=== PATIENT | female | born 1980 | race Caucasian/White ===

== ENCOUNTER 2019-12-24 07:02 | Inpatient (IN) | payer OTHER, MEDICAID ==
[~2019-12-24] VITALS: Ht 147.3 cm; Wt 39.0 kg
[2019-12-24] MEDS ORDERED: NACL 0.9% 1,000 ML IV ONE ×2 (07:22→09:45)
[2019-12-24] MEDS ORDERED: DIVA250T34 PO (07:24)
[2019-12-24] MEDS ORDERED: MEGE400O4 PO (07:24)
[2019-12-24] MEDS ORDERED: [UNRECOGNIZED DRUG - CODE] PO (07:24)
[2019-12-24] MEDS ORDERED: MULT-1243 PO (07:24)
[2019-12-24] MEDS ORDERED: [UNRECOGNIZED DRUG - CODE] PO (07:24)
[2019-12-24 07:25] VITALS: BP_SYST 119
--- NOTE | 2019-12-24 07:33 | NUR ---
PATIENT PRESENTS TO THE ER WITH HX OF FEVER WITH COUGH AND N/V FOR TWO DAYS; NO TRAUMA, NO OTHER REMARKABLE S/S; TO ER #8 AT 0710 AND ERMD EVALUATION 0720
[2019-12-24 08:12] LABS: HEMATOCRIT 40.4 % (36-48); HEMOGLOBIN 13.6 g/dL (12.0-16.0); LYMPHOCYTES # (AUTO) 0.3 K/uL (1.0-5.5); MEAN CORPUSCULAR HEMOGLOBIN 34 pg (27-31); MEAN CORPUSCULAR HGB CONC 34 % (32-36); MEAN CORPUSCULAR VOLUME 100 fL (79.0-98.0); MONOCYTES # (AUTO) 0.9 K/uL (0.0-1.0); RED BLOOD CELL COUNT(AUTO) 4.04 MIL/uL (4.2-6.2)
[2019-12-24 08:25] LABS: BASOPHILS # (AUTO) 0.1 K/uL (0.0-0.2); BASOPHILS % (AUTO) 0.5 % (0.0-2.0); CALCIUM 9.1 mg/dL (8.4-11.0); CREATININE 0.59 mg/dL (0.55-1.30); LYMPHOCYTES % (AUTO) 3.3 % (20.5-51.5); MONOCYTES % (AUTO) 8.7 % (1.7-9.3); NEUTROPHILS # (AUTO) 8.9 K/uL (1.8-7.7); NEUTROPHILS % (AUTO) 87.5 % (40.0-70.0); PLATELET COUNT (AUTO) 102 K/uL (130-430); POTASSIUM 3.5 mmol/L (3.5-5.1); RED CELL DISTRIBUTION WIDTH 13.3 % (9.0-15.0); WHITE BLOOD COUNT (AUTO) 10.1 K/uL (4.8-10.8)
--- NOTE | 2019-12-24 08:28 | NUR ---
REASSESSMENT; STRAIGHT CATH PER ERMD FOR UX; OTHERWISE UNCHANGED; DISPOSITION PENDING
[2019-12-24 08:29] LABS: ALBUMIN 3.2 g/dL (3.4-4.8); TOTAL BILIRUBIN 0.1 mg/dL (0.0-1.0)
[2019-12-24] MEDS ORDERED: cefTRIAXone 1 GM IVPB PREMIX 50 ML IV ONE (08:30)
[2019-12-24 08:40] LABS: BILIRUBIN,URINE NEGATIVE (NEGATIVE); BLOOD, URINE 3+ (NEGATIVE); CLARITY/URINE CLEAR (CLEAR); COLOR,URINE YELLOW (YELLOW); GLUCOSE,URINE NEGATIVE (NEGATIVE); KETONES,URINE NEGATIVE (NEGATIVE); LEUKOCYTE ESTERASE ,URINE NEGATIVE (NEGATIVE); NITRITE, URINE NEGATIVE (NEGATIVE); PROTEIN URINE 1+ (NEGATIVE); UROBILINOGEN,URINE 0.2 (0.2-1.0)
[2019-12-24 08:52] LABS: BACTERIA,URINE FEW /HPF (None Seen); RBC,URINE 20-50 /HPF (0-3); WBC,URINE 0-3 /HPF (0-3)
[2019-12-24 08:53] LABS: HYALINE CASTS, URINE 0-10 /LPF (None Seen)
--- NOTE | 2019-12-24 09:26 | NUR ---
REASSESSMENT; PATIENT IS AWAKE AND IMPROVED; CONGESTED COUGH NOTED AND PATIENT IS ABLE TO CLEAR OWN AIRWAY WELL; ADMISSION TO DR POWELL'S SERVICE PENDING
[2019-12-24] MEDS ORDERED: NACL 0.9% 500 ML IV ONE (09:30)
[2019-12-24] MEDS ORDERED: PROMETHAZINE-DM 6.25 MG-15 MG/5 ML UDC PO PRN (09:45)
[2019-12-24] MEDS ORDERED: IPRATROPIUM/ALBUTEROL SULFATE 3 ML AMPUL.NEB (DUONEB) INH ONE (09:45)
--- NOTE | 2019-12-24 10:28 | NUR ---
REASSESSMENT BY ERMD; PATIENT PREPARED FOR ADMISSION TO TELE; PATENT IV; BREATH SOUNDS CLEAR AFTER COUGH; PATIENT TRANSPORTED ACLS TO TELE AND REPORT AT BEDSIDE; NO BELONGINGS
--- NOTE | 2019-12-24 10:41 | NUR ---
ADMISSION NOTE Received patient from ER via gurney, received report from RN. Patient admitted with diagnosis of pneumonia. Patient oriented to hospital routine, call light, toileting and safety-patient verbalized understanding.
--- NOTE | 2019-12-24 10:48 | NUR ---
CONSULTATION PAGED REASON FOR CONSULTATION:PNEUMONIA WAS CONSULT CALLED?Y PERSON WHO WAS NOTIFIED:FIOR CONSULTING PHYSICIAN:BONIFACIO SEGURA (SEGUN ODONNELL TRAIN RESERVATION CLERK) OPERATIONS REPRESENTATIVE SPECIALTY:PULMONARY OPERATIONS REPRESENTATIVE PHONE NUMBER:[phone] ORDERING PHYSICIAN:GIOVANNA FRANCIS
--- NOTE | 2019-12-24 11:00 | NUR ---
RN ROUND RECEIVED REPORT BY ADN NURSE, TABITHA. PT AWAKE, MODERATE COUGHING EPISODE, WITH NO SPUTUM. TEMP 100.7, BP 135/78, HR 144. O2 SAT 90% ON ROOM AIR, RR 42. REPOSITIONED PT, PT IN HIGH FOWLERS. PLACED ICE PACKS UNDERARMS AND ABDOMEN. WILL CONTINUE TO MONITOR.
[2019-12-24 11:05] VITALS: BP_SYST 135
--- NOTE | 2019-12-24 13:05 | NUR ---
RN ROUNDS PT AWAKE, NO COUGHING. PT SATURATION AT 88%, PT IN HIGH FOWLERS. PLACED PT ON 2L NC, SATURATION AT 95%. PT TOLERATING WELL. AXILLARY TEMP 100.2. WILL PAGE . WILL CONTINUE TO MONITOR.
--- NOTE | 2019-12-24 13:25 | NUR ---
DR. POWELL SPOKE WITH MD VIA PHONE, INFORMED MD PT TEMP 100.2 (AXILLARY), HR 133-144, RR 42, O2 SAT 95% ON 2L NC, PT HAS NO DVT PROPHYLAXIS OR IVF, PT IS NOT EATING OR DRINKING, ATTEMPTED TO FEED PT BUT PT POCKETED FOOD IN CHEEK, PT RECEIVED 1.5L NS, LEVAQUIN AND ROCEPHIN IN ER. BLOOD CULTURES ARE PENDING, LACTIC ACID 3.6, 3.4, INFLUENZA NEGATIVE. NEW ORDERS RECEIVED, VERIFIED WITH READ BACK.
[2019-12-24] MEDS ORDERED: ACETAMINOPHEN 500 MG TABLET PO PRN (13:30)
[2019-12-24] MEDS: NACL 0.9% 1,000 ML IV SCH ×2 (13:50→21:59)
[2019-12-24] MEDS: ACETAMINOPHEN 650 MG SUPP.RECT RC PRN ×2 (13:52→23:40)
--- NOTE | 2019-12-24 14:00 | NUR ---
DR. ANDRE RAO AT BEDSIDE EXAMINING PT. INFORMED MD THAT TEMP IS STILL ELEVATED 100.3, TYLENOL REC WAS GIVEN AND IVF AND ANTIBIOTICS WERE STARTED. TO CONTINUE POC.
[2019-12-24] MEDS: PIPERACILLIN/TAZO 3.375/DEX-IS 50 ML IV SCH ×2 (14:21→21:08)
[2019-12-24] MEDS ORDERED: MULTIVITAMINS TAB 1 TABLET PO ONE (14:30)
[2019-12-24] MEDS: LamoTRIgine 25 MG TABLET PO SCH (14:30)
[2019-12-24] MEDS ORDERED: MEGESTROL ACETATE 400 MG/10 ML UDC PO ONE (14:30)
[2019-12-24] MEDS: LYSINE HCL 500 MG PO SCH ×2 (14:30→21:00)
[2019-12-24] MEDS ORDERED: DIVALPROEX SODIUM 250 MG TABLET(DEPAKOTE) PO ONE (14:30)
--- NOTE | 2019-12-24 15:00 | NUR ---
RN ROUNDS/DR. POPPY RAO AT BEDSIDE EXAMINING PT. INFORMED MD THAT PT HAS BEEN COUGHING MODERATELY, DESATURATING AT 88% AND PLACED PT ON 2L NC SATURATING AT 95%, PT FEVER HAS NOT BROKEN STILL REMAINS AT 100.3. PLACED FRESH NEW ICE PACKS ON PT. MD TO PLACE IN NEW ORDERS.
--- NOTE | 2019-12-24 15:21 | NUR ---
DR. GRAFF SPOKE WITH MD VIA PHONE INFORMED MD BLOOD CULTURE PENDING, LACTIC ACID 3.6, 3.4, IVF NORMAL SALINE RUNNING AT 100CC. TO INCREASE IVF RATE TO 125CC/HR. VERIFIED WITH READ BACK.
--- NOTE | 2019-12-24 15:41 | NUR ---
CONSULTATION PAGED/CALLED Reason for Consultation: [] SEPSIS Person Who was Notified: [] MERLIN Consulting Physician: [] DR CARLENE GRAFF Branch Manager Specialty: [] ID Ordering Physician: [] DR POWELL,SH
[2019-12-24 16:00] VITALS: BP_SYST 123
[2019-12-24] MEDS ORDERED: ALBUTEROL SULFATE 0.083% 2.5 MG/3 ML VIAL.NEB INH PRN (16:15)
[2019-12-24] MEDS ORDERED: IPRATROPIUM BROM 0.5 MG/2.5 ML VIAL.NEB (ATROVENT) INH PRN (16:15)
--- NOTE | 2019-12-24 16:52 | NUR ---
INCONTINENT PT INCONTINENT OF URINE. CHANGED PT AND LINEN. GAVE PT PARTIAL BED BATH. PT TOLERATED WELL. REPOSITIONED PT. PLACED NEW ICE PACKS. TEMP 100.1. WILL CONTINUE TO MONITOR.
--- NOTE | 2019-12-24 17:39 | NUR ---
RN ROUNDS PT AWAKE, ICE PACKS IN PLACE, TEMP 99.9. WILL CONTINUE TO MONITOR.
--- NOTE | 2019-12-24 18:41 | NUR ---
CLOSING NOTE PT AWAKE AND TRACKS WITH EYES, PT REMAINS NON VERBAL. TEMP 99.3. FRESH ICE PACKS REPLACED. IVF INFUSING WELL. SCDS AT BEDSIDE. WILL ENDORSE TO TORPEDO SHOOTER TO PLACE THEM ON PT ONCE TEMP LOWERS. PT REMAINS WARM. IVF INFUSING WELL. PT IS NPO UNTIL SWALLOW EVALUATION IS DONE. CALL LIGHT WITHIN REACH, BED IN LOW AND LOCKED POSITION WITH BED ALARM ON. ALL NEEDS MET THROUGHOUT SHIFT. WILL CONTINUE TO MONITOR UNTIL PT CARE IS ENDORSED TO TORPEDO SHOOTER RN.
--- NOTE | 2019-12-24 20:00 | NUR ---
recieved report @ start of shift, pt. non verbal, respirations even and unlabored, O2 @ 2l per NC. HOB elevated 30 degrees,patient tracks with eyes,NPO until swallow eval done,temp 98.3 @ this time,skin intact,no seizure activity noted, sr's padded,incont. of urine, kept clean and dry,aspiration precautions maintained,NS infusing in left wrist@ 125 ml./hr, bed in low position, will ontinue to monitor, Sinus Tach on tele monitor.
[2019-12-24 20:13] VITALS: BP_SYST 152
[2019-12-24] MEDS: IPRATROPIUM BROM 0.5 MG/2.5 ML VIAL.NEB (ATROVENT) INH SCH (20:19)
[2019-12-24] MEDS: ALBUTEROL SULFATE 0.083% 2.5 MG/3 ML VIAL.NEB INH SCH (20:19)
[2019-12-24] MEDS: DIVALPROEX SODIUM 250 MG TABLET(DEPAKOTE) PO SCH (21:00)
[2019-12-24] MEDS: MEGESTROL ACETATE 400 MG/10 ML UDC PO SCH (21:00)
[2019-12-25] VITALS (9 sets, daily range): BP systolic 104–150
--- NOTE | 2019-12-25 | NUR ---
resting quietly in bed with eyes open, several attempts made to restart IV unsuccessful, charge nurse restarted IV in left hand # 22G,tylenol Rectal supp. given earlier for elevated temp of 100.5 along with ice packs to abdomen, back of neck and axilla, temp down to 99.5, will continue to monitor.
[2019-12-25] MEDS: IPRATROPIUM BROM 0.5 MG/2.5 ML VIAL.NEB (ATROVENT) INH SCH ×4 (01:30→17:04)
[2019-12-25] MEDS: ALBUTEROL SULFATE 0.083% 2.5 MG/3 ML VIAL.NEB INH SCH ×4 (01:30→17:03)
[2019-12-25] MEDS ORDERED: LevALBUTEROL HCL 1.25 MG/0.5 ML *CONC.* VIAL.NEB (XOPENEX CONC.) INH ONE (01:36)
--- NOTE | 2019-12-25 04:00 | NUR ---
afebrile, temp 98.5, remains NPO, , swallowing evaluation to be done this am, aspiration ans seizure precautions maintained, NS continues to infuse in left hand @ 125 ml/hr, kept clean and dry i cont. of bladder, remains non verbal, no seizure activity noted, will continue to monitor for any s/s of distress/discomfort.
--- NOTE | 2019-12-25 05:28 | NUR ---
CALLED/LEFT VOICE MESSAGE TO ST MISA[facility] HERNANDEZ.
[2019-12-25] MEDS: NACL 0.9% 1,000 ML IV SCH (05:37)
[2019-12-25] MEDS: PIPERACILLIN/TAZO 3.375/DEX-IS 50 ML IV SCH ×3 (05:37→22:25)
[2019-12-25 07:30] LABS: BASOPHILS % (AUTO) 0.1 % (0.0-2.0); HEMATOCRIT 30.6 % (36-48); HEMOGLOBIN 10.6 g/dL (12.0-16.0); LYMPHOCYTES # (AUTO) 0.8 K/uL (1.0-5.5); LYMPHOCYTES % (AUTO) 8.2 % (20.5-51.5); MEAN CORPUSCULAR HEMOGLOBIN 35 pg (27-31); MEAN CORPUSCULAR HGB CONC 35 % (32-36); MEAN CORPUSCULAR VOLUME 100 fL (79.0-98.0); MONOCYTES # (AUTO) 0.6 K/uL (0.0-1.0); NEUTROPHILS # (AUTO) 8.8 K/uL (1.8-7.7); NEUTROPHILS % (AUTO) 85.7 % (40.0-70.0); RED BLOOD CELL COUNT(AUTO) 3.07 MIL/uL (4.2-6.2); RED CELL DISTRIBUTION WIDTH 13.6 % (9.0-15.0); WHITE BLOOD COUNT (AUTO) 10.3 K/uL (4.8-10.8)
[2019-12-25 07:41] LABS: ALBUMIN 2.2 g/dL (3.4-4.8); CALCIUM 7.5 mg/dL (8.4-11.0); CREATININE 0.42 mg/dL (0.55-1.30); POTASSIUM 3.8 mmol/L (3.5-5.1); THYROID STIMULATING HORMONE 1.5 uIu/mL (0.36-3.74)
[2019-12-25 07:44] LABS: PLATELET COUNT (AUTO) 80 K/uL (130-430)
[2019-12-25 07:53] LABS: TOTAL BILIRUBIN 0.2 mg/dL (0.0-1.0)
--- NOTE | 2019-12-25 08:09 | NUR ---
LATE ENTRY RECEIVED PATIENT IN BED EYES OPEN RESP UNLABORED APHASIC. PER RT SUCTIONED BLOOD TINGED MUCOS PLUGG PATIENT TOLERATED/ SPO2 97% NO S&S OF DISTRESS. VSS. WILL CONTINUE TO MONITOR FOR BLEEDING. SPEECH EVAL TO DAY SUGGEST PUREE NECTOR THICKED LIQUID. APPROX 45 MIN AFTER SPEECH EVAL. NOTICED SMALL AMOUNT OF BLOOD TINGED ORAL SECREATIONS. DR MALONEY NOTIFIED AND DR HWANG OF BLEEDING. ORDERED TO KEEP NPO UNTIL TOMORROW. AND ORDERED 20MG SOLUMEDROL IV Q8. WILL CONTINUE TO MONITOR
[2019-12-25] MEDS: DIVALPROEX SODIUM 250 MG TABLET(DEPAKOTE) PO SCH ×2 (09:00→20:24)
[2019-12-25] MEDS: LYSINE HCL 500 MG PO SCH ×2 (09:00→20:24)
[2019-12-25] MEDS ORDERED: LEVOFLOXACIN 500 MG/D5W 100 ML IV SCH (09:00)
[2019-12-25] MEDS: MULTIVITAMINS TAB 1 TABLET PO SCH (09:00)
[2019-12-25] MEDS: LamoTRIgine 25 MG TABLET PO SCH (09:31)
[2019-12-25] MEDS: MEGESTROL ACETATE 400 MG/10 ML UDC PO SCH ×2 (09:32→20:24)
--- NOTE | 2019-12-25 09:37 | NUR ---
Nutrition Update Kong Scale 13 noted. Pt admitted for pneumonia. Diet: NPO BMI: 18 kg/m2 RD to follow per nutrition care standards.
--- NOTE | 2019-12-25 16:12 | NUR ---
S.T. SWALLOW EVAL SWALLOW EVAL COMPLETED. PT PRESENTS W/ MOD OROPHARYNGEAL DYSPHAGIA W/ ERRATIC BOLUS THEATRICAL VARIETY AGENT AND TRANSFER, GENERALLY TIMELY SWALLOW INITIATION FOR PUREE AND THICKENED LIQUIDS, ERRATIC SWALLOW INITIATION AND SUSPECTED PREMATURE SPILLAGE FOR THIN LIQUIDS W/ INCREASED LABOR OF BREATHING NOTED (ON THIN LIQUIDS). ASPIRATION RISK PRESENT FOR THIN LIQUIDS. REC: PUREE DIET. THICKENED LIQUIDS (NECTAR CONSISTENCY). PT NOT A CANDIDATE FOR VFSS D/T POSITIONING DIFFICULTY. NURSE BURR NOTIFIED.
[2019-12-25] MEDS: 0.45% NACL 1,000 ML IV SCH (17:23)
--- NOTE | 2019-12-25 19:30 | NUR ---
ICU TRANSFER Rapid response in TELE, patient brought to ICU bed 1. Pt is awake/alert but unable to make needs known D/T MR. 02 via Venti mask at 50%. ST on monitor. Skin is cold and sweaty. Rectal temp 103.2F, PRN fever medication to be given. IVF infusing. Report given by television cameraman. Safety precautions in place, call light within reach. Will continue to monitor.
--- NOTE | 2019-12-25 20:00 | NUR ---
DR. MCWILLIAMS Spoke to Dr. Mcwilliams, [facility] results given. No new orders.
[2019-12-25] MEDS: ACETAMINOPHEN 650 MG SUPP.RECT RC PRN (20:15)
--- NOTE | 2019-12-25 20:16 | NUR ---
LATE ENTRY @ 1845 FOUND PATIENT WITH BLOOD COMMING FROM NOSE AND ORALLY. COLOR PALE, PATIENT MORE LETHARGIC SPO2 @ 83 EYES BEGINNING TO ROLL BACK. RAPID RESPONSE CALLED. RT AND MD AT AND TEAM AT BEDSIDE. PATIENT WITH POSITIVE PULSES BILATERALLY SUCTIONED MODERATE AMOUNT OF ORAL SECREATIONS.. DR HWANG NOTIFIED OF PATIENT CONDITION ORDERED PATIENT TO BE TRANSFERED ICU, ABG CXR 50%VENTI MASK. AT TIME OF TRANSFER PATIENT ALERT BP 150/98 HR 115 SPO2 90%
[2019-12-25 20:49] LABS: HEMOGLOBIN 11.3 g/dL (12.0-16.0); MEAN CORPUSCULAR HEMOGLOBIN 34 pg (27-31)
[2019-12-25 20:55] LABS: HEMATOCRIT 32.9 % (36-48); MEAN CORPUSCULAR HGB CONC 34 % (32-36); MEAN CORPUSCULAR VOLUME 99 fL (79.0-98.0); RED BLOOD CELL COUNT(AUTO) 3.31 MIL/uL (4.2-6.2); RED CELL DISTRIBUTION WIDTH 13.4 % (9.0-15.0); WHITE BLOOD COUNT (AUTO) 7.1 K/uL (4.8-10.8)
[2019-12-25 21:00] LABS: CALCIUM 7.9 mg/dL (8.4-11.0); CREATININE 0.46 mg/dL (0.55-1.30); POTASSIUM 3.2 mmol/L (3.5-5.1)
[2019-12-25 21:02] LABS: INR 1.1 (0.8-1.2); PROTHROMBIN TIME 11.1 SECS (9.5-12.5)
[2019-12-25 21:03] LABS: ALBUMIN 2.4 g/dL (3.4-4.8); TOTAL BILIRUBIN 0.2 mg/dL (0.0-1.0)
[2019-12-25 21:07] LABS: PLATELET COUNT (AUTO) 111 K/uL (130-430)
[2019-12-25 21:09] LABS: BAND % (MANUAL) 12 % (0-6); BASOPHILS % (MANUAL) 0 % (0-2); EOSINOPHILS % (MANUAL) 0 % (0-7); LYMPHOCYTES % (MANUAL) 3 % (20-46); MONOCYTES % (MANUAL) 10 % (0-11)
--- NOTE | 2019-12-25 22:05 | NUR ---
Dr. POWELL Spoke to Dr. Powell, LAB results given. Orders for K+ and Montoya catheter given. Will carry out orders.
[2019-12-25] MEDS: methylPREDNISolone SOD SUCC 40 MG/ML VIAL IVP SCH (22:24)
[2019-12-25] MEDS: KCL 20 mEq in 100 mL (PREMIX) 100 ML IV SCH (22:32)
--- NOTE | 2019-12-25 23:40 | NUR ---
LUCIANO CATH: # 16 FR Luciano catheter with 10 cc bulb inserted with use of sterile technique. Immediate return of 30 cc yellow urine noted. Bedside drainage bag placed below level of bladder. Pt tolerated procedure well.
[2019-12-26] VITALS (22 sets, daily range): BP systolic 91–143
[2019-12-26] MEDS: KCL 20 mEq in 100 mL (PREMIX) 100 ML IV SCH (00:05)
[2019-12-26] MEDS: IPRATROPIUM BROM 0.5 MG/2.5 ML VIAL.NEB (ATROVENT) INH SCH ×4 (02:02→19:52)
[2019-12-26] MEDS: ALBUTEROL SULFATE 0.083% 2.5 MG/3 ML VIAL.NEB INH SCH ×4 (02:02→19:52)
[2019-12-26] MEDS: methylPREDNISolone SOD SUCC 40 MG/ML VIAL IVP SCH ×3 (05:37→22:22)
[2019-12-26] MEDS: PIPERACILLIN/TAZO 3.375/DEX-IS 50 ML IV SCH ×3 (05:38→22:22)
[2019-12-26 06:23] LABS: BASOPHILS % (AUTO) 0.1 % (0.0-2.0); EOSINOPHILS % (AUTO) 0.1 % (0.0-4.0); HEMATOCRIT 34.1 % (36-48); HEMOGLOBIN 11.6 g/dL (12.0-16.0); LYMPHOCYTES # (AUTO) 0.4 K/uL (1.0-5.5); LYMPHOCYTES % (AUTO) 4.4 % (20.5-51.5); MEAN CORPUSCULAR HEMOGLOBIN 34 pg (27-31); MEAN CORPUSCULAR HGB CONC 34 % (32-36); MEAN CORPUSCULAR VOLUME 101 fL (79.0-98.0); MONOCYTES # (AUTO) 0.7 K/uL (0.0-1.0); MONOCYTES % (AUTO) 7.9 % (1.7-9.3); NEUTROPHILS # (AUTO) 8.1 K/uL (1.8-7.7); NEUTROPHILS % (AUTO) 87.5 % (40.0-70.0); PLATELET COUNT (AUTO) 78 K/uL (130-430); RED BLOOD CELL COUNT(AUTO) 3.37 MIL/uL (4.2-6.2); RED CELL DISTRIBUTION WIDTH 13.8 % (9.0-15.0); WHITE BLOOD COUNT (AUTO) 9.3 K/uL (4.8-10.8)
[2019-12-26 06:30] LABS: CALCIUM 8.3 mg/dL (8.4-11.0); CREATININE 0.29 mg/dL (0.55-1.30)
--- NOTE | 2019-12-26 07:25 | NUR ---
ENDORSEMENT Pt care endorsed to dayshift RN using nursing SBAR.
[2019-12-26] MEDS ORDERED: LORazepam 2 MG/ML VIAL IV PRN (08:15)
[2019-12-26] MEDS ORDERED: methylPREDNISolone SOD SUCC 40 MG/ML VIAL IVP SCH (09:00)
[2019-12-26] MEDS: LYSINE HCL 500 MG PO SCH ×2 (09:00→20:49)
[2019-12-26] MEDS: DIVALPROEX SODIUM 250 MG TABLET(DEPAKOTE) PO SCH ×2 (09:49→20:54)
[2019-12-26] MEDS: MEGESTROL ACETATE 400 MG/10 ML UDC PO SCH ×2 (09:51→20:53)
[2019-12-26] MEDS: LamoTRIgine 25 MG TABLET PO SCH (09:55)
[2019-12-26] MEDS: MULTIVITAMINS TAB 1 TABLET PO SCH (09:55)
[2019-12-26] MEDS: 0.45% NACL 1,000 ML IV SCH (15:12)
--- NOTE | 2019-12-26 19:00 | NUR ---
THE PT DID EAT SOME BREAKFAST AND DINNER BUT REFUSED LUNCH. SHE HAD TWO BOWEL MOVEMENTS FOR ME AND IS AFEBRILE. I DID GET A HOLD OF HER MOTHER WHO LIVES IN [place] FOR CONSENT OF MIDLINE INSERTION. SHE PT IS STABLE AT THIS AND ANTIBIOTIC THERAPY IS ONGOING.
--- NOTE | 2019-12-26 19:30 | NUR ---
initial note Received patient after report from day shift nurse. Patient is awake and resting comfortably. no signs of respiratory distress noted as patient is on O2 4L NC. repositioned for comfort. will continue to monitor
[2019-12-27] VITALS (12 sets, daily range): BP systolic 93–123
[2019-12-27] MEDS: ALBUTEROL SULFATE 0.083% 2.5 MG/3 ML VIAL.NEB INH SCH ×4 (01:01→19:28)
[2019-12-27] MEDS: IPRATROPIUM BROM 0.5 MG/2.5 ML VIAL.NEB (ATROVENT) INH SCH ×4 (01:01→19:28)
--- NOTE | 2019-12-27 01:05 | NUR ---
O2 reduced to 3L NC and patient tolerating well.
--- NOTE | 2019-12-27 04:30 | NUR ---
complete bed bath provided. stool present and perineal cere given. patient tolerated well. repositioned for comfort.
[2019-12-27] MEDS: PIPERACILLIN/TAZO 3.375/DEX-IS 50 ML IV SCH ×3 (06:22→21:20)
[2019-12-27] MEDS: methylPREDNISolone SOD SUCC 40 MG/ML VIAL IVP SCH ×3 (06:22→21:23)
[2019-12-27 07:10] LABS: BASOPHILS % (AUTO) 0.2 % (0.0-2.0); HEMATOCRIT 31.1 % (36-48); HEMOGLOBIN 10.6 g/dL (12.0-16.0); LYMPHOCYTES # (AUTO) 0.5 K/uL (1.0-5.5); LYMPHOCYTES % (AUTO) 7.6 % (20.5-51.5); MEAN CORPUSCULAR HEMOGLOBIN 34 pg (27-31); MEAN CORPUSCULAR HGB CONC 34 % (32-36); MEAN CORPUSCULAR VOLUME 99 fL (79.0-98.0); MONOCYTES # (AUTO) 0.3 K/uL (0.0-1.0); MONOCYTES % (AUTO) 4.7 % (1.7-9.3); NEUTROPHILS # (AUTO) 6.3 K/uL (1.8-7.7); NEUTROPHILS % (AUTO) 87.5 % (40.0-70.0); PLATELET COUNT (AUTO) 101 K/uL (130-430); RED BLOOD CELL COUNT(AUTO) 3.14 MIL/uL (4.2-6.2); RED CELL DISTRIBUTION WIDTH 13.6 % (9.0-15.0); WHITE BLOOD COUNT (AUTO) 7.2 K/uL (4.8-10.8)
[2019-12-27 07:24] LABS: ALBUMIN 2.1 g/dL (3.4-4.8); CALCIUM 8.3 mg/dL (8.4-11.0); CREATININE 0.37 mg/dL (0.55-1.30); POTASSIUM 3.6 mmol/L (3.5-5.1); TOTAL BILIRUBIN 0.3 mg/dL (0.0-1.0)
--- NOTE | 2019-12-27 08:44 | NUR ---
Nutrition F/U RD reviewed pt's current EMR including diet Hx, physician notes, nursing notes, pertinent labs/meds/procedures, care trends and care activity. Current Diet Order: Pureed diet x 1 day Subjective information: Pt seen in bed, awake but non-verbal, breathing treatment ongoing at time of RD visit earlier. Per RN report, pt w/ poor PO intake. Reports from yesterday's RN: PO intake: 25% of breakfast, refused lunch and had 7 bites of food at dinner, no intake of Ensure as pt w/ some difficulty swallowing. Per MD notes 12/26/2019: pt had seizure like activity, bleeding from nose and desaturated and was transferred to ICU 12/26. RD noted pt is currently receiving Megace to stimulate appetite and elevated BG possible d/t solu-medrol medication interaction. Last BM 12/27 x2. If PO intake does not improve by next RD visit, pt may benefit from an alternate route of nutrition support. Current PO intake: Negligible 12% average of 3 meals 12/26/2019 per RN report. Estimated Energy Expenditure (kcals/day) 6342-9898 kcal/day (30-35 kcal/kg CBW for sepsis) Estimated Protein Required (g/day) 59-78 gm/day (1.5-2 gm/kg CBW for sepsis) Estimated Fluid Required (l/day) 1.2-1.4 mL/day (1 mL/kcal for maintenance) Problem/Etiology/Signs/Symptoms Increase nutritional needs related to catabolic condition as evidenced by estimated caloric needs for sepsis. *ongoing Altered nutrition related labs r/t medication interaction AEB elevated BG and solu-medrol. *new Expected Outcomes/Goals - Monitor appetite and PO intake w/ goal of pt meeting great than 50% of estimated caloric intake, labs trading WNL, skin integrity, and wt maintenance. Dietitian Recommendations * Continue Pureed diet w/ thickened liquids per RAILROAD OPERATING ENGINEER rec. * Continue Megace and MVI. * Encourage pt to increase PO intake. Follow Up High Risk: F/U in 2-3days
--- NOTE | 2019-12-27 08:53 | NUR ---
Dietitian Recommendations * Continue Pureed diet w/ thickened liquids per CASEY SAW OPERATOR rec. * Continue Megace and MVI. * Encourage pt to increase PO intake. Please see Nutrition F/U note for details. JHONATHAN, RD
[2019-12-27] MEDS: LYSINE HCL 500 MG PO SCH ×2 (09:00→21:00)
[2019-12-27] MEDS: DIVALPROEX SODIUM 250 MG TABLET(DEPAKOTE) PO SCH ×2 (09:12→21:19)
[2019-12-27] MEDS: MEGESTROL ACETATE 400 MG/10 ML UDC PO SCH ×2 (09:13→21:19)
[2019-12-27] MEDS: MULTIVITAMINS TAB 1 TABLET PO SCH (09:13)
[2019-12-27] MEDS: LamoTRIgine 25 MG TABLET PO SCH (09:13)
--- NOTE | 2019-12-27 11:00 | NUR ---
THE PT WAS DOWNGRADED TO FLOOR STATUS. I CALLED REPORT TO TIARRA GÓMEZ. THE PT DID EAT SOME BREAKFAST AND WAS ABLE TO TAKE HER SEIZURE MEDICATION FOR ME. SHE DID HAVE A BOWEL MOVEMENT SHORTLY AFTER AND WAS CLEANED. SO2 STABLE WITH 3L NC. VS STABLE WELL.
--- NOTE | 2019-12-27 12:00 | NUR ---
received from icu and vss.tele sr.appears in no sign of distress or discomfort.nonverbal and only screams or yells and reacts to painful stimuli.repositioned in bed .castillo patent and clear judy urine draining.pt is a feeder and intake poor for lunch.02 at 3lnc and neb tx done by rt.mod amt of secretions and suctioned afterward.skin clear and intact.continue to monitor.
[2019-12-27] MEDS: 0.45% NACL 1,000 ML IV SCH (14:20)
--- NOTE | 2019-12-27 18:46 | NUR ---
pt in no signs of discomfort.turned and repositiond q2h occ coughing spells and suctioned prn for small amt clear sputum.takes only 20% of dinner intake.tele with clear judy urine.continue to monitor
--- NOTE | 2019-12-27 19:18 | NUR ---
REPORT TO MACHINE INSTALLER GIVEN
--- NOTE | 2019-12-27 19:55 | NUR ---
Opening notes Pt alert, awake, eyes open, non verbal. No s/s distress noted. O23L via NC satting at 93-98%. IVF infusing at ordered rate RU arm midline double port clear and patent. Montoya catheter draining to gravity secured. Seizure precaution in place. Bed low, locked, siderails up. To monitor.
--- NOTE | 2019-12-27 21:30 | NUR ---
Med pass Pt alert, awake, no s/s distress noted. Meds passed as scheduled. HOB maintained elevated. Pt oral suctioned, noted small, clear secretions. Pt tolerated well. Will monitor.
--- NOTE | 2019-12-27 23:30 | NUR ---
Rounds Pt asleep, easily arousable. Pt takes off nasal cannula, desats 86%. Oxygen placed back on pt sats 95%. To monitor.
--- NOTE | 2019-12-28 01:43 | NUR ---
Rounds Pt asleep, respirations even and unlabored. Safety maintained. Will continue to monitor.
[2019-12-28] MEDS: ALBUTEROL SULFATE 0.083% 2.5 MG/3 ML VIAL.NEB INH SCH ×4 (01:59→20:16)
[2019-12-28] MEDS: IPRATROPIUM BROM 0.5 MG/2.5 ML VIAL.NEB (ATROVENT) INH SCH ×4 (01:59→20:16)
[2019-12-28 02:11] VITALS: BP_SYST 137
--- NOTE | 2019-12-28 03:30 | NUR ---
Rounds Pt asleep, no s/s distress noted. Safety measures maintained. Seizure precaution in place. To monitor.
[2019-12-28] MEDS: PIPERACILLIN/TAZO 3.375/DEX-IS 50 ML IV SCH ×3 (05:43→21:00)
[2019-12-28] MEDS: 0.45% NACL 1,000 ML IV SCH ×2 (05:43→21:00)
[2019-12-28] MEDS: methylPREDNISolone SOD SUCC 40 MG/ML VIAL IVP SCH ×2 (05:43→20:45)
--- NOTE | 2019-12-28 05:50 | NUR ---
Closing notes Pt awake, no s/s distress noted. Pt takes off Oxygen on/off. New IV bag/tubing placed infusing at ordered rate. IV antibiotic administered at ordered rate OCTAVIO midline dressing C/D/I. Seizure precaution maintained. Safety measures in place. Repositioned. To endorse to AM nurse.
[2019-12-28 08:00] VITALS: BP_SYST 112
--- NOTE | 2019-12-28 08:00 | NUR ---
Initial notes- In bed, awake, non verbal. turn and repositioned. On o2 3l , tolerating well. IVF infusing well. Montoya cath draining well. on bilateral SCD, padded side rails. bed alarm on. will monitor
[2019-12-28] MEDS: MULTIVITAMINS TAB 1 TABLET PO SCH (08:32)
[2019-12-28] MEDS: DIVALPROEX SODIUM 250 MG TABLET(DEPAKOTE) PO SCH ×2 (08:32→20:46)
[2019-12-28] MEDS: MEGESTROL ACETATE 400 MG/10 ML UDC PO SCH ×2 (08:32→20:45)
[2019-12-28] MEDS: LamoTRIgine 25 MG TABLET PO SCH (08:32)
[2019-12-28] MEDS: LYSINE HCL 500 MG PO SCH ×2 (08:33→20:46)
--- NOTE | 2019-12-28 09:00 | NUR ---
MD rounds Seen by dr. Scott at bedside
--- NOTE | 2019-12-28 09:10 | NUR ---
Take her meds, eat a little bit and drinking some of her ensure at this time.
--- NOTE | 2019-12-28 10:30 | NUR ---
Notes- Resting in bed, no acute distress noted. Repositioned.
[2019-12-28 12:00] VITALS: BP_SYST 100
--- NOTE | 2019-12-28 12:42 | NUR ---
Personal Lines Agent: met with pt. to conduct a DCPA SPEECH THERAPY TEACHER tried to awaken pt. to see how alert and if she was cognitive. Pt. was not arousable. SPEECH THERAPY TEACHER spoke to Rn, Junie who stated pt. does not speak and is not able to form words. SPEECH THERAPY TEACHER will call pts. family listed in the facesheet.
--- NOTE | 2019-12-28 14:30 | NUR ---
Awake in bed, caregiver at bedside. n distress noted. repositioned.
[2019-12-28 16:08] VITALS: BP_SYST 93
--- NOTE | 2019-12-28 18:30 | NUR ---
Notes- In bed awake, no distress noted. has soft large bowel movement. Ivf infusing well. will endorse
--- NOTE | 2019-12-28 19:18 | NUR ---
OPENING NOTE RECEIVED CARE OF PT AND SBAR REPORT. PT IS AWAKE AND ALERT, NONVERBAL, EYES ARE OPEN. PT BREATHING IS EVEN AND UNLABORED ON O2 VIA NC AT 3L, O2 SAT IS 93%. NO S/S OF ACUTE DISTRESS, NO SIGNS OF PAIN OR DISCOMFORT NOTED USING FLACC PAIN SCALE. IVF ARE INFUSING AT ORDERED RATE TO OCTAVIO MIDLINE. F/C IS INTACT AND DRAINING WELL TO GRAVITY. ASPIRATION PRECAUTIONS NOTED. SEIZURE PRECAUTIONS ARE PRESENT, PADDED SIDE RAILS IN PLACE. SAFETY PRECAUTIONS ARE IN PLACE: BED IS LOCKED AND ALARMED AT LOWEST LEVEL, SIDE RAILS UP X3, CALL LIGHT WITH PT, CLOSE TO NURSES STATION. WILL MONITOR.
[2019-12-28 20:00] VITALS: BP_SYST 102
--- NOTE | 2019-12-28 21:00 | NUR ---
MED PASS SCHEDULED MEDICATIONS ADMINISTERED ORDERED. PO MEDICATIONS GIVEN CRUSHED WITH APPLESAUCE, PT COOPERATIVE. SOLU-MEDROL GIVEN IVP. IVPB HUNG ORDERED. MEDICATIONS EXPLAINED TO PT, PT UNABLE TO VERBALIZE UNDERSTANDING. SAFETY, ASPIRATION, AND SEIZURE PRECAUTIONS MAINTAINED. WILL MONITOR.
--- NOTE | 2019-12-28 23:05 | NUR ---
RN ROUNDS: PT RESTING IN BED, AWAKE AND ALERT, NO S/S OF ACUTE DISTRESS. BREATHING IS EVEN AND UNLABORED. SLIGHT NON-PRODUCTIVE COUGH NOTED. IVF INFUSING ORDERED. F/C DRAINING WELL TO GRAVITY. SAFETY, ASPIRATION, AND SEIZURE PRECAUTIONS ARE IN PLACE. WILL MONITOR.
[2019-12-29] MEDS: IPRATROPIUM BROM 0.5 MG/2.5 ML VIAL.NEB (ATROVENT) INH SCH ×4 (00:44→19:41)
[2019-12-29] MEDS: ALBUTEROL SULFATE 0.083% 2.5 MG/3 ML VIAL.NEB INH SCH ×4 (00:44→19:40)
--- NOTE | 2019-12-29 01:00 | NUR ---
INCONTINENCE CARE PT INCONTINENT OF BOWELS. COMPLETE BED BATH GIVEN WITH ASSISTANCE FROM TAMERA PASTRANA. PT PROVIDED WITH NEW LINENS AND GOWN. PT TOLERATED WELL. NO S/S OF ACUTE DISTRESS. SAFETY, ASPIRATION, AND SEIZURE PRECAUTIONS REMAIN IN PLACE. WILL MONITOR.
--- NOTE | 2019-12-29 02:30 | NUR ---
SLEEPING PT RESTING IN BED, VISIBLE RISE AND FALL OF CHEST, BREATHING IS UNLABORED. NO S/S OF ACUTE DISTRESS. NO SIGN OF PAIN OR DISCOMFORT. IVF INFUSING ORDERED. F/C DRAINING TO GRAVITY. SAFETY, ASPIRATION, AND SEIZURE PRECAUTIONS OBSERVED. WILL MONITOR.
[2019-12-29 02:37] VITALS: BP_SYST 125
--- NOTE | 2019-12-29 04:00 | NUR ---
INCONTINENCE CARE PT INCONTINENT OF BOWELS, PT CLEANED BY TAMERA PASTRANA. PT TOLERATED WELL. NO S/S OF ACUTE DISTRESS. SAFETY, ASPIRATION, AND SEIZURE PRECAUTIONS REMAIN IN PLACE. WILL MONITOR.
[2019-12-29] MEDS: PIPERACILLIN/TAZO 3.375/DEX-IS 50 ML IV SCH ×3 (05:00→21:37)
--- NOTE | 2019-12-29 05:00 | NUR ---
ZOSYN SCHEDULED ZOSYN ADMINISTERED. NO S/S OF ADVERSE REACTION.
--- NOTE | 2019-12-29 05:25 | NUR ---
CLOSING NOTE PT RESTING IN BED. NO S/S OF DISTRESS. NO CHANGE IN INITIAL ASSESSMENT. SAFETY, ASPIRATION, AND SEIZURE PRECAUTIONS ARE IN PLACE. WILL CONTINUE TO MONITOR UNTIL PT CARE IS ENDORSED TO DAY SHIFT RN.
[2019-12-29 05:56] LABS: BASOPHILS % (AUTO) 0.1 % (0.0-2.0); HEMATOCRIT 30.4 % (36-48); HEMOGLOBIN 10.2 g/dL (12.0-16.0); LYMPHOCYTES # (AUTO) 0.6 K/uL (1.0-5.5); LYMPHOCYTES % (AUTO) 8.5 % (20.5-51.5); MEAN CORPUSCULAR HEMOGLOBIN 33 pg (27-31); MEAN CORPUSCULAR HGB CONC 33 % (32-36); MEAN CORPUSCULAR VOLUME 99 fL (79.0-98.0); MONOCYTES # (AUTO) 0.8 K/uL (0.0-1.0); NEUTROPHILS # (AUTO) 5.6 K/uL (1.8-7.7); NEUTROPHILS % (AUTO) 80.4 % (40.0-70.0); PLATELET COUNT (AUTO) 177 K/uL (130-430); RED BLOOD CELL COUNT(AUTO) 3.07 MIL/uL (4.2-6.2); RED CELL DISTRIBUTION WIDTH 13.6 % (9.0-15.0); WHITE BLOOD COUNT (AUTO) 6.9 K/uL (4.8-10.8)
--- NOTE | 2019-12-29 07:15 | NUR ---
OPENING NOTES PT AWAKE AND NONVERBAL. NONLABORED BREATHING NOTED. PT ON O2 VIA NASAL CANNULA AT 3LPM, TOLERATING WELL. NO ACUTE DISTRESS NOTED, NO SIGNS OF PAIN NOTED USING FLACC PAIN SCALE. IV INTACT AND PATENT, NO SIGNS OF INFILTRATION NOTED. FLUIDS RUNNING ORDERED PER MD, TOLERATING WELL. LUCIANO CATHETER IS INTACT AND PATENT, DRAINING WELL. FALL, ASPIRATION, AND SEIZURE PRECAUTIONS IN PLACE. PADDED SIDE RAILS IN PLACE. BED IS LOCKED AND AT LOWEST POSITION. BED ALARM ON. SIDE RAILS UP X3, CALL LIGHT WITHIN REACH. ALL NEEDS MET, CLOSE TO NURSING STATION. CONTINUE TO MONITOR.
[2019-12-29 08:00] VITALS: BP_SYST 116
[2019-12-29] MEDS: methylPREDNISolone SOD SUCC 40 MG/ML VIAL IVP SCH ×2 (09:00→21:37)
[2019-12-29] MEDS: DIVALPROEX SODIUM 250 MG TABLET(DEPAKOTE) PO SCH ×2 (09:00→21:37)
[2019-12-29] MEDS: LamoTRIgine 25 MG TABLET PO SCH (09:00)
[2019-12-29] MEDS: LYSINE HCL 500 MG PO SCH ×2 (09:00→21:00)
[2019-12-29] MEDS: MULTIVITAMINS TAB 1 TABLET PO SCH (09:00)
[2019-12-29] MEDS: MEGESTROL ACETATE 400 MG/10 ML UDC PO SCH ×2 (09:00→21:37)
--- NOTE | 2019-12-29 09:45 | NUR ---
ROUTINE MEDS ROUTINE MEDS ADMINISTERED ORDERED PER MD, VERBALIZED EDUCATION, TOLERATED WELL. NO ACUTE DISTRESS NOTED. ALL NEEDS MET. CALL LIGHT IN REACH. CONTINUE TO MONITOR.
--- NOTE | 2019-12-29 11:45 | NUR ---
ROUNDS PT AWAKE, EYES OPEN. NONVERBAL. NO ACUTE DISTRESS NOTED. ALL NEEDS MET. CALL LIGHT IN REACH. CONTINUE TO MONITOR.
[2019-12-29 12:00] VITALS: BP_SYST 116
[2019-12-29 12:03] LABS: CALCIUM 7.6 mg/dL (8.4-11.0); CREATININE 0.35 mg/dL (0.55-1.30); POTASSIUM 3.1 mmol/L (3.5-5.1)
--- NOTE | 2019-12-29 12:52 | NUR ---
SS NOTES/ATTEMPT: SOCIAL SCIENCES RESEARCH SCIENTIST attempted to phone parents @ [phone], wireless number is unavailable and no one answers at the facility with no option to leave voicemail. SS/CM will attempt again.
--- NOTE | 2019-12-29 13:00 | NUR ---
ROUNDS PT AWAKE, EYES OPEN, NONVERBAL. NO ACUTE DISTRESS NOTED. PADDED SIDE RAILS IN PLACE. ALL NEEDS MET. CALL LIGHT IN REACH. CONTINUE TO MONITOR.
--- NOTE | 2019-12-29 14:39 | NUR ---
ROUTINE MEDS ROUTINE MEDS ADMINISTERED ORDERED PER MD, VERBALIZED EDUCATION, TOLERATED WELL. HOB ELEVATED. NO ACUTE DISTRESS NOTED. ALL NEEDS MET. CALL LIGHT IN REACH. CONTINUE TO MONITOR.
--- NOTE | 2019-12-29 16:00 | NUR ---
ROUNDS PT AWAKE. NONLABORED BREATHING NOTED. EYES OPENED. RECEIVING O2 ORDERED, TOLERATED WELL. NO ACUTE DISTRESS NOTED. ALL NEEDS MET. CALL LIGHT IN REACH. CONTINUE TO MONITOR.
[2019-12-29 16:18] VITALS: BP_SYST 127
[2019-12-29] MEDS ORDERED: POTASSIUM CHLORIDE 40 MEQ in NS 250 ML IV ONE (17:15)
--- NOTE | 2019-12-29 19:00 | NUR ---
CLOSING NOTES PT AWAKE AND NONVERBAL. EYES OPEN. NONLABORED BREATHING NOTED ON O2 VIA NASAL CANNULA AT 3LPM, TOLERATING WELL. NO ACUTE DISTRESS NOTED, NO SIGNS OF PAIN NOTED USING FLACC PAIN SCALE. LUCIANO CATHETER IS INTACT AND PATENT, DRAINING WELL. IV INTACT AND PATENT, NO SIGNS OF INFILTRATION NOTED, FLUIDS RUNNING ORDERED PER MD, TOLERATING WELL. FALL, ASPIRATION, AND SEIZURE PRECAUTIONS IN PLACE. PADDED SIDE RAILS IN PLACE. BED IS LOCKED AND AT LOWEST POSITION. BED ALARM ON. SIDE RAILS UP X3, CALL LIGHT WITHIN REACH. ALL NEEDS MET. ENDORSED TO [facility] NURSE SHANNON RN.
--- NOTE | 2019-12-29 19:30 | NUR ---
OPENING NOTE RECEIVED CARE OF PT AND SBAR REPORT. PT IS AWAKE AND ALERT, NONVERBAL, EYES ARE OPEN AND ABLE TO TRACK. PT BREATHING IS EVEN AND UNLABORED ON O2 VIA NC AT 3L, O2 SAT IS 93%. NO S/S OF ACUTE DISTRESS, NO SIGNS OF PAIN OR DISCOMFORT NOTED USING FLACC PAIN SCALE. IVF ARE INFUSING AT ORDERED RATE TO OCTAVIO MIDLINE. F/C IS INTACT AND DRAINING WELL TO GRAVITY. ASPIRATION PRECAUTIONS NOTED. SEIZURE PRECAUTIONS ARE PRESENT, PADDED SIDE RAILS IN PLACE. SAFETY PRECAUTIONS ARE IN PLACE: BED IS LOCKED AND ALARMED AT LOWEST LEVEL, SIDE RAILS UP X3, CALL LIGHT WITH PT, CLOSE TO NURSES STATION. WILL MONITOR.
[2019-12-29 20:00] VITALS: BP_SYST 124
[2019-12-29] MEDS: 0.45% NACL 1,000 ML IV SCH (21:40)
--- NOTE | 2019-12-29 21:50 | NUR ---
MED PASS SCHEDULED MEDICATIONS ADMINISTERED ORDERED. PO MEDICATIONS GIVEN CRUSHED WITH APPLESAUCE, PT COOPERATIVE AND ATE APPLESAUCE WITH NO PROBLEM. SOLU-MEDROL GIVEN IVP. IVPB HUNG ORDERED. MEDICATIONS EXPLAINED TO PT, PT UNABLE TO VERBALIZE UNDERSTANDING. SAFETY, ASPIRATION, AND SEIZURE PRECAUTIONS MAINTAINED. WILL MONITOR.
--- NOTE | 2019-12-29 23:05 | NUR ---
INCONTINENCE CARE PT INCONTINENT OF BOWELS, PT CLEANED BY DIANA PASTRANA PT TOLERATED WELL. NO S/S OF ACUTE DISTRESS. SAFETY, ASPIRATION, AND SEIZURE PRECAUTIONS REMAIN IN PLACE. WILL MONITOR.
[2019-12-30] VITALS: BP_SYST 139
[2019-12-30] MEDS: ALBUTEROL SULFATE 0.083% 2.5 MG/3 ML VIAL.NEB INH SCH ×3 (00:30→13:16)
[2019-12-30] MEDS: IPRATROPIUM BROM 0.5 MG/2.5 ML VIAL.NEB (ATROVENT) INH SCH ×3 (00:30→13:16)
[2019-12-30] MEDS: PIPERACILLIN/TAZO 3.375/DEX-IS 50 ML IV SCH ×2 (05:10→14:59)
--- NOTE | 2019-12-30 05:15 | NUR ---
ZOSYN SCHEDULED ZOSYN HUNG. NO S/S OF ADVERSE REACTION NOTED.
[2019-12-30 07:22] LABS: CALCIUM 8.1 mg/dL (8.4-11.0); CREATININE 0.44 mg/dL (0.55-1.30); POTASSIUM 4.1 mmol/L (3.5-5.1)
[2019-12-30 08:00] VITALS: BP_SYST 136
--- NOTE | 2019-12-30 08:00 | NUR ---
initial notes rec pstient awake non verbally responsive. ivf infusing through a midline r upper arm. no infiltration noted. bed to the lowest positon and side rails up and locked. being fed at bedside and crush meds were given and eulalio well.
[2019-12-30] MEDS: MULTIVITAMINS TAB 1 TABLET PO SCH (08:09)
[2019-12-30] MEDS: DIVALPROEX SODIUM 250 MG TABLET(DEPAKOTE) PO SCH (08:10)
[2019-12-30] MEDS: MEGESTROL ACETATE 400 MG/10 ML UDC PO SCH (08:10)
[2019-12-30] MEDS: methylPREDNISolone SOD SUCC 40 MG/ML VIAL IVP SCH (08:10)
[2019-12-30] MEDS ORDERED: methylPREDNISolone SOD SUCC 40 MG/ML VIAL IVP SCH (10:00)
--- NOTE | 2019-12-30 10:00 | NUR ---
rounds dr edwards came and will d/c patient post arrangement with [facility]
--- NOTE | 2019-12-30 11:56 | NUR ---
Discharge Planning: DCP faxed pt referral to [facility] (f [phone] p [phone]) DCP to follow up Addendum: 12/30/19 at 1538 by Bessy Mckenzie DP Per Cynthia patient accepted [facility] (f [phone] p [phone]) nurse made aware
[2019-12-30 12:00] VITALS: BP_SYST 119
--- NOTE | 2019-12-30 14:11 | NUR ---
Rotor Casting Machine Setup Operator; complete a DCPA TELECOMMUNICATIONS MANAGER was not able to meet with pt. the other day because pt. is non-verbal. Pt. came from [facility]. As per Rn Lennie Cancino at [facility], pt. has been at this home for the past 13 years. She has family that comes to see her. Her mom and dad stay in contact and are listed in the facesheet. 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 Pt. is mentally challenged and has a [facility] worker, Eileen Sinclair, . TELECOMMUNICATIONS MANAGER will remain available as needed.
--- NOTE | 2019-12-30 16:00 | NUR ---
rounds pt will be discharged back to the board and care at 1815. spoke with the learning and development administrator renny polanco. resting comfortably. no osb noted. pt close to the nurses station.
[2019-12-30 16:44] VITALS: BP_SYST 139
--- NOTE | 2019-12-30 16:45 | NUR ---
AMBULANCE ARRANGEMENT MADE [facility] AT ETA FOR [id number].
[2019-12-30 17:11] VITALS: BP_SYST 139
--- NOTE | 2019-12-30 19:37 | NUR ---
D/C Patient Patient given medication reconciliation form and D/C instructions. Exit Care provided. MD discussed with patient the results and treatment provided. Patient in stable condition, ID band removed. IV catheter removed, intact and dressing applied, no active bleeding. Montoya catheter removed. surveillance monitor removed. Patient educated on pain management. All belongings sent with patient.
== END 2019-12-30 19:37 | disposition home or self-care (01) | DRG 871 ==
LOC: SED 07:02 → STU 09:33 → SIC 12-25 19:52 → STU 12-27 11:51
PROVIDERS: ADMIT Internal Medicine; ATTEND Internal Medicine
PROC: 05HY33Z Insertion of Infusion Device into Upper Vein, Percutaneous Approach (ICD-10-PCS; principal; 2019-12-26)
PROC: B54MZZA Ultrasonography of Right Upper Extremity Veins, Guidance (ICD-10-PCS; 2019-12-26)
DX: A41.9 Sepsis, unspecified organism (principal); J69.0 Pneumonitis due to inhalation of food and vomit; J96.91 Respiratory failure, unspecified with hypoxia; G82.50 Quadriplegia, unspecified; E46 Unspecified protein-calorie malnutrition; Z68.1 Body mass index [BMI] 19.9 or less, adult; E87.1 Hypo-osmolality and hyponatremia; F84.2 Rett's syndrome; N39.0 Urinary tract infection, site not specified; D69.6 Thrombocytopenia, unspecified; F79 Unspecified intellectual disabilities; G40.909 Epilepsy, unspecified, not intractable, without status epilepticus; M41.9 Scoliosis, unspecified; E86.0 Dehydration; Z79.899 Other long term (current) drug therapy
CPT/HCPCS: 36415; 36600; 71045; 80048; 80053; 80061; 80164-TC; 81000-TC; 82803-TC; 82962; 83036; 83605; 83735-TC; 84443-TC; 85007; 85025; 85027; 85610-TC; 86710; 87040-TC; 87081; 92610-GN; 94640; 94760; 96361; 96365; 96367; 99291; C1751; G0378; J0696; J1030; J1956; J2543; J3480; J7030; J7050; J7612; J7613